=== PATIENT | female | born 1950 | race Caucasian/White ===

== ENCOUNTER → 2017-03-13 | Outpatient (CLI) | payer OTHER ==
[~2017-03-13] MED LIST: ASPI81 PO; ATEN50TA PO; CITRTAB PO; FISH300C2 PO; RANI150T PO
[2017-03-13 17:34] LABS: CREATINE KINASE 59 U/L (26-192)
== END ==
LOC: CLAB 16:17
PROVIDERS: ATTEND Family Medicine
DX: R07.9 Chest pain, unspecified (principal)
CPT/HCPCS: 36415; 82550; 84484